=== PATIENT | male | born 1995 | race Caucasian/White ===

== ENCOUNTER 2017-05-22 19:46 | Emergency (ER) | payer OTHER ==
[~2017-05-22] VITALS: Ht 190.5 cm; Wt 211.1 kg
[2017-05-22 19:56] VITALS: BP 131/86; PULSE 96; TEMP 37.6; O2SAT 97; Ht 190.5 cm; Wt 211.1 kg
[2017-05-22] MEDS ORDERED: SERT50TA PO (20:04)
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
[2017-05-22] MEDS ORDERED: CYCL5TAB PO (22:00)
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
== END 2017-05-22 22:20 | disposition home or self-care (01) ==
LOC: C.EDD 19:49
DX: S06.0X9A Concussion with loss of consciousness of unspecified duration, initial encounter (principal); V43.52XA Car driver injured in collision with other type car in traffic accident, initial encounter; M54.2 Cervicalgia; F41.8 Other specified anxiety disorders; Z79.899 Other long term (current) drug therapy; Z91.018 Allergy to other foods